=== PATIENT | male | born 1990 | race Caucasian/White ===

== ENCOUNTER 2016-05-24 17:10 | Emergency (ER) | payer BC, OTHER ==
[~2016-05-24] VITALS: Ht 177.8 cm; Wt 81.6 kg
--- NOTE | 2016-05-24 18:42 | ED GU-Male ---
General Chief Complaint: -Male Stated Complaint: SCREENED FOR CHLAMYDIA Nursing Triage Note: AMB TO ROOM WAS TOLD THAT HIS GIRLFRIEND MAY HAVE CHLAMYDIA. HAD SEX LAST NIGHT. HAVING NO SYMPTOMS AT THIS TIME. Source: patient Exam Limitations: no limitations History of Present Illness Time seen by provider: 18:42 Initial Comments 26-year-old male patient presents to the emergency Department with reports of needing checked for chlamydia. Patient was told by someone yesterday that his girlfriend may have chlamydia. Reports having intercourse with her last night. Denies using protection. Denies discharge, burning with urination, frequency , testicular pain, fever, abdominal pain, nausea, vomiting, diarrhea. Timing/Duration: other (patient was told by someone yesterday and his girlfriend may have chlamydia.) Severity/Quality: other (denies symptoms.) Activities at Onset: none Prior Genitourinary Problems: similar symptoms (patient was treated several months ago for Chlamydia due to the same girlfriend having a chlamydia infection. States he was treated prophylactically.) Sexual [place] History: less than 2 months ago, multiple partners Allergies and Home Medications Allergies Coded Allergies: No Known Drug Allergies (Unverified , 05/24/16) Home Medications No Active Prescriptions or Reported Meds Constitutional: No diaphoresis, No fever, No malaise Respiratory: no symptoms reported Cardiovascular: no symptoms reported Gastrointestinal: No abdominal pain, No diarrhea, No nausea, No vomiting Genitourinary: see HPIdenies burning, denies discharge, denies dysuria, denies frequency, denies flank pain, denies hematuria, denies pain Musculoskeletal: no symptoms reported Skin: no symptoms reported All Other Systemes Reviewed Negative Unless Noted: Yes (Negative excepted noted.) Past Opjxgwj-Vpryhf-Rmtipa Hx Patient Social History Alcohol Use: Occasionally Uses Recreational Drug Use: No Smoking Status: Current Everyday Smoker Recent Foreign Travel: No Contact w/Someone Who Travel: No Recent Infectious Disease Expo: No Respiratory Hx Respiratory Disorders: No Cardiovascular Hx Cardiac Disorders: No Neurological Hx Neurological Disorders: No Genitourinary Hx Genitourinary Disorders: No (patient previously treated prophylactically for Chlamydia.) Gastrointestinal Hx Gastrointestinal Disorders: No Reviewed Nursing Assessment Reviewed/Agree w Nursing PMH: Yes Family Medical History Significant Family History: No Pertinent Family Hx Physical Exam Vital Signs Vital Sign - Last 12Hours 05/24/16 05/24/16 17:32 19:27 Temp 98.0 Pulse 100 Resp 18 B/P 111/ Pulse Ox 98 O2 Delivery Room Air Capillary Refill : Less Than 3 Seconds General Appearance: WD/WN no apparent distress Cardiovascular: regular rate, rhythm no murmur Respiratory: lungs clear normal breath sounds no respiratory distress Gastrointestinal: normal bowel sounds non tender softNo distended Neurologic/Psychiatric: alert normal mood/affect oriented x 3 Skin: normal color warm/dry Progress/Results/Core Measures Results/Orders Lab Results Laboratory Tests Test 05/24/16 18:47 Range/Units My Orders Orders-BILLIE HEBERT Chlamydia Dna Urine Test (05/24/16 18:56) [place] Dna Urine Test (05/24/16 18:56) Vital Signs/I&O Vital Sign - Last 12Hours 05/24/16 05/24/16 17:32 19:27 Temp 98.0 Pulse 100 88 Resp 18 16 B/P 111/ Pulse Ox 98 100 O2 Delivery Room Air Departure Communication Progress Notes Patient seen and evaluated. Patient instructed to contact the emergency department approximately 7-8 days for final results of testing. Impression Impression: Primary Impression: Encounter for screening examination for sexually transmitted disease Disposition: HOME, SELF-CARE Condition: Improved Departure-Patient Inst. Decision time for Depature: 19:05 Referrals: NO,LOCAL PHYSICIAN (PCP/Family) Primary Care Physician Patient Instructions: Sexually-Transmitted Diseases (DC) Add. Discharge Instructions: All discharge instructions reviewed with patient and/or family. Voiced understanding. Follow-up with your family practitioner of choice to establish care. Abstain from intercourse until results obtained from the STD testing today. Return to the emergency department for worsened symptoms or any other concerns. Scripts No Active Prescriptions or Reported Meds Work/School Note: Local Medical Staff Listing BILLIE HEBERT May 24, 2016 18:42
[2016-05-24 19:27] VITALS: BP 110/82
== END 2016-05-24 19:26 | disposition home or self-care (01) ==
LOC: EDUNIT# 17:10 → ER 17:13
DX: Z20.2 Contact with and (suspected) exposure to infections with a predominantly sexual mode of transmission (principal); F17.210 Nicotine dependence, cigarettes, uncomplicated
CPT/HCPCS: 36415; 87491; 87591; 99281

== ENCOUNTER 2017-07-05 18:59 | Emergency (ER) | payer BC ==
[~2017-07-05] VITALS: Ht 177.8 cm; Wt 86.2 kg
[2017-07-05 20:20] LABS: BILIRUBIN,URINE NEGATIVE (NEGATIVE); CLARITY,URINE CLEAR; COLOR,URINE YELLOW; GLUCOSE, URINE (UA) NEGATIVE (NEGATIVE); KETONES,URINE NEGATIVE (NEGATIVE); LEUKOCYTE ESTERASE ,URINE NEGATIVE (NEGATIVE); NITRITE,URINE NEGATIVE (NEGATIVE); PH,URINE 6 (5-9); PROTEIN,URINE NEGATIVE (NEGATIVE); UROBILINOGEN,URINE NORMAL (NORMAL)
[2017-07-05 20:27] LABS: SQUAMOUS EPITHELIAL CELL,UR RARE /HPF
[2017-07-05 20:32] LABS: AMPHETAMINE SCREEN, URINE NEGATIVE (NEGATIVE); BARBITURATE SCREEN URINE NEGATIVE (NEGATIVE); BENZODIAZEPINES SCREEN URINE NEGATIVE (NEGATIVE); CANNABINOID SCREEN, URINE POSITIVE (NEGATIVE); COCAINE SCREEN URINE NEGATIVE (NEGATIVE); METHADONE STAT NEGATIVE (NEGATIVE); METHAMPHETAMINE SCREEN URINE S NEGATIVE (NEGATIVE); OPIATE SCREEN URINE NEGATIVE (NEGATIVE); OXYCODONE STAT NEGATIVE (NEGATIVE); PROPOXYPHENE STAT NEGATIVE (NEGATIVE); TRICYCLIC ANTIDEPRESSANTS SCRE NEGATIVE (NEGATIVE)
[2017-07-05 20:38] LABS: BASOPHILS % (AUTO) 0 % (0-10); EOSINOPHILS # (AUTO) 0.2 10^3/uL (0.0-0.3); EOSINOPHILS % (AUTO) 2 % (0-10); HEMATOCRIT 47 % (40-54); HEMOGLOBIN 16.2 G/DL (13.3-17.7); LYMPHOCYTES # (AUTO) 1.5 X 10^3 (1.0-4.0); LYMPHOCYTES % (AUTO) 18 % (12-44); MEAN CORPUSCULAR HEMOGLOBIN 31 PG (25-34); MEAN CORPUSCULAR HGB CONC 35 G/DL (32-36); MEAN CORPUSCULAR VOLUME 89 FL (80-99); MEAN PLATELET VOLUME 8.9 FL (7.4-10.4); MONOCYTES # (AUTO) 0.7 X 10^3 (0.0-1.0); MONOCYTES % (AUTO) 8 % (0-12); NEUTROPHILS # (AUTO) 5.8 X 10^3 (1.8-7.8); NEUTROPHILS % (AUTO) 71 % (42-75); PLATELET COUNT 389 10^3/uL (130-400); RED BLOOD COUNT 5.26 10^6/uL (4.35-5.85); RED CELL DISTRIBUTION WIDTH 12.3 % (10.0-14.5); WHITE BLOOD COUNT 8.2 10^3/uL (4.3-11.0)
[2017-07-05 21:05] LABS: ALANINE AMINOTRANSFERASE 18 U/L (0-55); ALKALINE PHOSPHATASE 67 U/L (40-136); BILIRUBIN,TOTAL 0.9 MG/DL (0.1-1.0); BUN/CREATININE RATIO 11; CARBON DIOXIDE 24 MMOL/L (21-32); CHLORIDE 102 MMOL/L (98-107); CREATININE SERUM 0.98 MG/DL (0.60-1.30); GFR ESTIMATED > 60; GLUCOSE 88 MG/DL (70-105); MAGNESIUM 2.4 MG/DL (1.8-2.4); POTASSIUM 4.3 MMOL/L (3.6-5.0); SODIUM 138 MMOL/L (135-145); TOTAL PROTEIN 8.1 GM/DL (6.4-8.2)
--- NOTE | 2017-07-05 21:37 | ED Neurological Problem ---
General Chief Complaint: Neurological Problems Stated Complaint: HAD EPISODE WHERE HE WAS STIFF AN UNRESPONSIVE Nursing Triage Note: FATHER STATES THAT THE PATIENT WAS FOUND STANDING IN THE KITCHEN TODAY, ARMS EXTENDED OUT IN FRONT OF HIM, MUMBLING AND "NOT RESPONSIVE." THIS EPISODE LASTED 30-60 SECS AT LEAST. FATHER GOT PATIENT TO THE COUCH ONCE RESPONSIVE AND MOTHER CHECKED A BP OF 167/111. PATIENT IS ANGER AND SHAKING IN ROOM BECAUSE HE " DOESNT NEED TO BE HERE." Nursing Sepsis Screen: No Definite Risk Source: patient Exam Limitations: no limitations History of Present Illness Date Seen by Provider: July 05, 2017 Time Seen by Provider: 21:00 Initial Comments Here with report of being found standing in the kitchen grating his teeth and not moving and not responding to his father. This happened earlier and lasted about a minute or so. Patient does not remember the incident. He remembers going to the kitchen and then later sitting in the living room but does not remember the time in between. Apparently he's had one or 2 of these episodes previously but the patient doesn't know about them. Denies headaches or injuries. Aside from these incidents never had anything like this before. Admits to occasionally using marijuana and smoking. He drinks a fifth of whiskey a week but sometimes a little more. Denies nausea, vomiting, weakness, breathing problems or fevers. Patient reports he does not really want to be here but came because his father brought him here. Timing/Duration: 1-3 hours, other (gone now) Severity: moderate Associated Symptoms: denies symptoms Allergies and Home Medications Allergies Coded Allergies: No Known Drug Allergies (Unverified , 05/24/16) Home Medications No Active Prescriptions or Reported Meds Patient Home Medication List Home Medication List Reviewed: Yes Review of Systems Constitutional: see HPI; No chills, No fever Eyes: No Symptoms Reported Ears, Nose, Mouth, Throat: no symptoms reported Respiratory: no symptoms reported Cardiovascular: no symptoms reported Gastrointestinal: no symptoms reported; No nausea, No vomiting Genitourinary: no symptoms reported Musculoskeletal: no symptoms reported Psychiatric/Neurological: See HPI, Other (question of seizure activity) All Other Systems Reviewed Negative Unless Noted: Yes Past Fhusany-Vjxevj-Xwfjos Hx Past Med/Social Hx: Reviewed Nursing Past Med/Soc Hx Patient Social History Alcohol Use: Regular Use Alcohol Beverage of Choice: [place] Recreational Drug Use: Yes Drug of Choice: MARIJUANA, "WHATEVER PAIN KILLERS FRIENDS HAVE" Smoking Status: Current Everyday Smoker Type Used: Cigarettes 2nd Hand Smoke Exposure: Yes Recent Foreign Travel: No Contact w/Someone Who Travel: No Recent Infectious Disease Expo: No Recent Hopitalizations: No Physical Abuse: No Sexual Abuse: No Seasonal Allergies Seasonal Allergies: No Past Medical History Surgeries: Yes (WISDOM TEETH) Respiratory: No Cardiac: No Neurological: No Gastrointestinal: No Nursing Suicide Risk Score: 0 Family Medical History Reviewed Nursing Family Hx No Pertinent Family Hx Physical Exam Vital Signs Vital Signs - First Documented 07/05/17 19:34 Temp 98.4 Pulse 70 Resp 18 B/P (MAP) 158/85 (109) Pulse Ox 99 Capillary Refill : Less Than 3 Seconds General Appearance: WD/WN, no apparent distress HEENT: PERRL/EOMI, TMs normal, pharynx normal Neck: full range of motion, supple Respiratory: lungs clear, normal breath sounds Cardiovascular: regular rate, rhythm, no murmur Gastrointestinal: non tender, soft Back: normal inspection, no CVA tenderness, no vertebral tenderness Extremities: normal range of motion, non-tender, normal inspection Neurologic/Psychiatric: alert, oriented x 3 Crainal Nerves: normal hearing, normal speech, PERRL Coordination/Gait: normal finger to nose, normal gait Motor/Sensory: no motor deficit, no sensory deficit, no pronator drift Skin: normal color, warm/dry Progress/Results/Core Measures Lab Results Laboratory Tests Test 07/05/17 20:12 07/05/17 20:30 Range/Units Urine Color YELLOW Urine Clarity CLEAR Urine pH 6 5-9 Urine Specific [place] 1.010 L 1.016-1.022 Urine Protein NEGATIVE NEGATIVE Urine Glucose (UA) NEGATIVE NEGATIVE Urine Ketones NEGATIVE NEGATIVE Urine Nitrite NEGATIVE NEGATIVE Urine Bilirubin NEGATIVE NEGATIVE Urine Urobilinogen NORMAL NORMAL MG/DL Urine Leukocyte Esterase NEGATIVE NEGATIVE Urine RBC (Auto) NEGATIVE NEGATIVE Urine RBC NONE /HPF Urine WBC NONE /HPF Urine Squamous Epithelial Cells RARE /HPF Urine Crystals NONE /LPF Urine Bacteria NONE /HPF Urine Casts NONE /LPF Urine Mucus NEGATIVE /LPF Urine Culture Indicated NO Urine Opiates Screen NEGATIVE NEGATIVE Urine Oxycodone Screen NEGATIVE NEGATIVE Urine Methadone Screen NEGATIVE NEGATIVE Urine Propoxyphene Screen NEGATIVE NEGATIVE Urine Barbiturates Screen NEGATIVE NEGATIVE Ur Tricyclic Antidepressants Screen NEGATIVE NEGATIVE Urine Phencyclidine Screen NEGATIVE NEGATIVE Urine Amphetamines Screen NEGATIVE NEGATIVE Urine Methamphetamines Screen NEGATIVE NEGATIVE Urine Benzodiazepines Screen NEGATIVE NEGATIVE Urine Cocaine Screen NEGATIVE NEGATIVE Urine Cannabinoids Screen POSITIVE H NEGATIVE White Blood Count 8.2 4.3-11.0 10^3/uL Red Blood Count 5.26 4.35-5.85 10^6/uL Hemoglobin 16.2 13.3-17.7 G/DL Hematocrit 47 40-54 % Mean Corpuscular Volume 89 80-99 FL Mean Corpuscular Hemoglobin 31 25-34 PG Mean Corpuscular Hemoglobin Concent 35 32-36 G/DL Red Cell Distribution Width 12.3 10.0-14.5 % Platelet Count 389 130-400 10^3/uL Mean Platelet Volume 8.9 7.4-10.4 FL Neutrophils (%) (Auto) 71 42-75 % Lymphocytes (%) (Auto) 18 12-44 % Monocytes (%) (Auto) 8 0-12 % Eosinophils (%) (Auto) 2 0-10 % Basophils (%) (Auto) 0 0-10 % Neutrophils # (Auto) 5.8 1.8-7.8 X 10^3 Lymphocytes # (Auto) 1.5 1.0-4.0 X 10^3 Monocytes # (Auto) 0.7 0.0-1.0 X 10^3 Eosinophils # (Auto) 0.2 0.0-0.3 10^3/uL Basophils # (Auto) 0.0 0.0-0.1 10^3/uL Sodium Level 138 135-145 MMOL/L Potassium Level 4.3 3.6-5.0 MMOL/L Chloride Level 102 98-107 MMOL/L Carbon Dioxide Level 24 21-32 MMOL/L Anion Gap 12 5-14 MMOL/L Blood Urea Nitrogen 11 7-18 MG/DL Creatinine 0.98 0.60-1.30 MG/DL Estimat Glomerular Filtration Rate > 60 BUN/Creatinine Ratio 11 Glucose Level 88 70-105 MG/DL Calcium Level 10.0 8.5-10.1 MG/DL Magnesium Level 2.4 1.8-2.4 MG/DL Total Bilirubin 0.9 0.1-1.0 MG/DL Aspartate Amino Transf (AST/SGOT) 18 5-34 U/L Alanine Aminotransferase (ALT/SGPT) 18 0-55 U/L Alkaline Phosphatase 67 40-136 U/L Total Protein 8.1 6.4-8.2 GM/DL Albumin 5.0 H 3.2-4.5 GM/DL Thyroid Stimulating Hormone (TSH) 0.93 0.35-4.94 UIU/ML My Orders Orders - DON CRUZ MD Cbc With Automated Diff (07/05/17 20:15) Comprehensive Metabolic Panel (07/05/17 20:15) Drug Screen Stat (Urine) (07/05/17 20:15) Magnesium (07/05/17 20:15) Thyroid Stimulating Hormone (07/05/17 20:15) Ua Culture If Indicated (07/05/17 20:15) Vital Signs/I&O 07/05/17 19:34 Temp 98.4 Pulse 70 Resp 18 B/P (MAP) 158/85 (109) Pulse Ox 99 Blood Pressure Mean: 109 Progress Note : Progress Note Seen and evaluated. Patient did not want to stay but acquiesced the lab draw and IV. Labs including thyroid studies ordered. 2130: No acute findings on laboratory data. Patient does not want to do CT scan and really wants to go. We did talk at length about concerns about seizures. 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 He states that he will follow-up in the father states that he will encourage him to follow-up. Discharged home with return precautions. Patient verbalize understanding instructions and agreement with plan. Departure Impression Primary Impression: Seizure-like activity Disposition: 01 HOME, SELF-CARE Condition: Stable Departure-Patient Inst. Decision time for Depature: 21:37 Referrals: NO,LOCAL PHYSICIAN (PCP/Family) Primary Care Physician Patient Instructions: Seizures, Adult (DC) Add. Discharge Instructions: All discharge instructions reviewed with patient and/or family. Voiced understanding. Do not perform activities increase your risk or wrist others for injury including driving, climbing to heights spaces or bathing/swimming alone. Use should follow-up with your doctor or doctor of your choosing for recheck and further evaluation and further evaluation for possible seizure disorder. Return for worse pain, fever, vomiting, weakness, breathing problems, seizures or other concerns as needed. Scripts No Active Prescriptions or Reported Meds DON CRUZ MD July 05, 2017 21:37
[2017-07-05 21:41] VITALS: BP 158/85
[2017-07-06] MEDS ORDERED: AMOX500C2 PO (15:01)
== END 2017-07-05 21:43 | disposition home or self-care (01) ==
LOC: EDUNIT# 18:59 → ER 19:01
DX: R25.9 Unspecified abnormal involuntary movements (principal); F12.10 Cannabis abuse, uncomplicated; F17.210 Nicotine dependence, cigarettes, uncomplicated
CPT/HCPCS: 36415; 80053; 80306; 81000; 83735; 84443; 85025; 99283

== ENCOUNTER 2017-07-06 11:14 | Emergency (ER) | payer BC ==
[~2017-07-06] VITALS: Ht 175.3 cm; Wt 81.6 kg
--- NOTE | 2017-07-06 12:41 | ED Neurological Problem ---
General Chief Complaint: Neurological Problems Stated Complaint: SEIZURE LIKE ACTIVITY-LAST ONE LAST NIGHT Nursing Triage Note: ARRIVED VIA AMB TO ROOM 01 WITH MULTIPLE FAMILY. WAS SEEN HERE LAST EVENING AFTER A POSSIBLE SEIZURE. DR CRUZ WANTED A CT DONE BUT PT REFUSED. AFTER GOING HOME HE HAD A PERIOD OF EYES LOCKED AND SHAKING AND A STIFF BODY. Nursing Sepsis Screen: No Definite Risk Source: patient, family Exam Limitations: no limitations History of Present Illness Date Seen by Provider: July 06, 2017 Time Seen by Provider: 12:36 Initial Comments To ER by family with reports of seizure-like activity. About 2 weeks ago this first started. The patient had an episode of standing upright, arms out in front of him, gritting his teeth, eyes fixed and he was shaking. He was unresponsive to verbal stimuli by his father. Those symptoms lasted for about a minute, for a few moments afterwards he seemed a bit disoriented. He had another episode yesterday afternoon walking from one room of the house to another and father states that he again until his arms out in front of him, his eyes were fixed, he was shaking and unresponsive to verbal stimuli. The symptoms again lasted about a minute with a few moments of disorientation afterwards. The patient himself does not recall any of these episodes, he is reluctant to be here, only here at his family's request. There is no personal or family history of seizure disorder. He was evaluated here in the emergency room last night but he refused a head CT scan. He was discharged home. He's not had any additional episodes of seizure-like activity since discharge yesterday. His father has since been able to convince him to have a head CT done. Patient denies any substance abuse stating "the only pain pills I've done is a coworker gave me a hydrocodone because I bust my ass that much harder than anybody else" . Timing/Duration: episodic Severity: moderate Allergies and Home Medications Allergies Coded Allergies: No Known Drug Allergies (Unverified , 05/24/16) Home Medications No Active Prescriptions or Reported Meds Patient Home Medication List Home Medication List Reviewed: Yes Review of Systems Constitutional: see HPI Eyes: No Symptoms Reported Ears, Nose, Mouth, Throat: no symptoms reported Respiratory: no symptoms reported Cardiovascular: no symptoms reported Genitourinary: no symptoms reported Musculoskeletal: no symptoms reported Skin: no symptoms reported Psychiatric/Neurological: See HPI; Denies Cognitive Dysfunction, Denies Headache; [place] Seizures Endocrine: No Symptoms Reported Hematologic/Lymphatic: No Symptoms Reported Past Dzrgupa-Eixevh-Tzpyig Hx Patient Social History Alcohol Use: Regular Use Alcohol Beverage of Choice: Beer Recreational Drug Use: Yes Drug of Choice: POT Smoking Status: Current Everyday Smoker Type Used: Cigarettes 2nd Hand Smoke Exposure: Yes Recent Foreign Travel: No Contact w/Someone Who Travel: No Recent Infectious Disease Expo: No Recent Hopitalizations: No Seasonal Allergies Seasonal Allergies: No Past Medical History Surgeries: Yes (WISDOM TEETH) Respiratory: No Cardiac: No Neurological: No Gastrointestinal: No Family Medical History No Pertinent Family Hx Physical Exam Vital Signs Vital Signs - First Documented 07/06/17 12:00 Temp 98.8 Pulse 90 Resp 18 B/P (MAP) 142/87 (105) Pulse Ox 98 O2 Delivery Room Air Capillary Refill : Less Than 3 Seconds General Appearance: WD/WN, no apparent distress HEENT: PERRL/EOMI, normal ENT inspection Neck: non-tender, full range of motion Respiratory: no respiratory distress, no accessory muscle use Cardiovascular: regular rate, rhythm, no murmur Gastrointestinal: normal bowel sounds, non tender, soft Extremities: normal range of motion, non-tender Neurologic/Psychiatric: alert, oriented x 3, other (No focal neurologic deficit. He is unhappy about being here, only here to appease his family.) Crainal Nerves: normal hearing, normal speech, PERRL Coordination/Gait: normal finger to nose, normal gait Motor/Sensory: no motor deficit, no sensory deficit Skin: normal color, warm/dry Progress/Results/Core Measures My Orders Orders - LILIANA SORIANO APRN Ct Head Wo (07/06/17 12:23) Mri Brain W/O Contrast (07/06/17 13:49) Mra Head W/O Contrast (07/06/17 ) Vital Signs/I&O 07/06/17 12:00 Temp 98.8 Pulse 90 Resp 18 B/P (MAP) 142/87 (105) Pulse Ox 98 O2 Delivery Room Air Blood Pressure Mean: 105 Progress Note : Progress Note CT scan unremarkable. I'll proceed with MR venogram to evaluate for cerebral venous sinus thrombosis given the seizure-like activity with a left maxillary sinusitis. If This is unremarkable have him follow-up with neurology and treat with antibiotics for the sinusitis Diagonstic Imaging: CT Comments NAME: BARBARA CRUZ [facility] REC#: [id number] PT STATUS: REG ER : 1990 PHYSICIAN: LILIANA SORIANO APRN ADMIT DATE: 07/06/17/ER Draft Date of Exam:07/06/17 CT HEAD WO PROCEDURE: CT head without contrast. TECHNIQUE: Multiple contiguous axial images were obtained through the brain without the use of intravenous contrast. INDICATION: Seizure. FINDINGS: The ventricles are normal in size, shape, and position. There are no masses or hemorrhages. There are no extra-axial fluid collections. There is some membrane thickening in the left maxillary sinus. IMPRESSION: Left maxillary sinusitis. No acute intracranial abnormalities are seen. Dictated on workstation # [id number] Dict: 07/06/17 1333 Trans: 07/06/17 1336 [id number] Interpreted by: DON PAZ MD Electronically signed by: NAME: BARBARA CRUZ [facility] REC#: [id number] PT STATUS: REG ER : 1990 PHYSICIAN: LILIANA SORIANO APRN ADMIT DATE: 07/06/17/ER Draft Date of Exam:07/06/17 MRI BRAIN W/O CONTRAST PROCEDURE: MR imaging of the brain without contrast. TECHNIQUE: Multiplanar, multisequence MR imaging of the brain was performed without contrast. INDICATION: Seizure-like activity. The ventricles and sulci are within normal limits. The normal expected flow-voids within the carotid siphons are seen. No diffusion restriction is identified to suggest acute ischemia. No acute intra-axial or extra-axial hemorrhage is seen. Corpus callosum is unremarkable. The sella and parasellar structures are unremarkable. IMPRESSION: Unremarkable noncontrast MRI of the brain. Dictated on workstation # [id number] Dict: 07/06/17 1444 Trans: 07/06/17 1454 [facility] [id number] Interpreted by: CABRERA HOLCOMB MD Electronically signed by: NAME: BARBARA CRUZ [facility] REC#: [id number] PT STATUS: REG ER : 1990 PHYSICIAN: LILIANA SORIANO APRN ADMIT DATE: 07/06/17/ER Draft Date of Exam:07/06/17 MRA HEAD W/O CONTRAST CLINICAL INDICATION: Patient came to ER with seizure-like activity. Evaluate for dural venous sinus thrombosis. EXAM: MRV of the head performed without IV contrast using 3-D imaging. 3-D rotating MIP images of the head were created to better evaluate anatomy. COMPARISON: Head CT without contrast dated 07/06/2017. MRI of the brain performed without IV contrast dated 07/06/2017. FINDINGS: The dural venous sinuses are patent with no evidence of definitive intravascular thrombus. There are flow void seen within the distal sigmoid sinuses and jugular veins bilaterally. The deep venous structures are patent. The truncated flow void appearance in the anterior aspect of the dural venous sinus is suspected to be congenital. IMPRESSION: There is no evidence of dural venous sinus thrombosis. Dictated on workstation # [id number] Dict: 07/06/17 1434 Trans: 07/06/17 1456 [facility] [id number] Interpreted by: DHAVAL ALEXANDRA MD Electronically signed by: Departure Impression Primary Impression: Seizure-like activity Disposition: HOME, SELF-CARE Condition: Stable Departure-Patient Inst. Decision time for Depature: 13:39 Referrals: [facility] [place] (PCP/Family) Primary Care Physician Patient Instructions: NO INSTRUCTIONS GIVEN Add. Discharge Instructions: 1. Your CT scan only shows left maxillary sinusitis, no evidence of a rui tumor. However, this does not exclude seizure disorder. You should follow up with Neurology for further evaluation. Unfortunately we do not have a neurologist here in [place]. Call [facility] to make an appointment at [phone] All discharge instructions reviewed with patient and/or family. Voiced understanding. Scripts Amoxicillin (Amoxicillin) 500 Mg Capsule 1000 MG PO TID, #42 CAP Prov: LILIANA SORIANO APRN 07/06/17 LLIIANA SORIANO APRN July 06, 2017 12:41
--- NOTE | 2017-07-06 13:37 | Diagnostic Imaging Report ---
PROCEDURE: CT head without contrast. TECHNIQUE: Multiple contiguous axial images were obtained through the brain without the use of intravenous contrast. INDICATION: Seizure. FINDINGS: The ventricles are normal in size, shape, and position. There are no masses or hemorrhages. There are no extra-axial fluid collections. There is some membrane thickening in the left maxillary sinus. IMPRESSION: Left maxillary sinusitis. No acute intracranial abnormalities are seen. Dictated by: Dictated on workstation # [id number]
--- NOTE | 2017-07-06 14:55 | Diagnostic Imaging Report ---
PROCEDURE: MR imaging of the brain without contrast. TECHNIQUE: Multiplanar, multisequence MR imaging of the brain was performed without contrast. INDICATION: Seizure-like activity. The ventricles and sulci are within normal limits. The normal expected flow-voids within the carotid siphons are seen. No diffusion restriction is identified to suggest acute ischemia. No acute intra-axial or extra-axial hemorrhage is seen. Corpus callosum is unremarkable. The sella and parasellar structures are unremarkable. IMPRESSION: Unremarkable noncontrast MRI of the brain. Dictated by: Dictated on workstation # [id number]
--- NOTE | 2017-07-06 14:57 | Diagnostic Imaging Report ---
CLINICAL INDICATION: Patient came to ER with seizure-like activity. Evaluate for dural venous sinus thrombosis. EXAM: MRV of the head performed without IV contrast using 3-D imaging. 3-D rotating MIP images of the head were created to better evaluate anatomy. COMPARISON: Head CT without contrast dated 07/06/2017. MRI of the brain performed without IV contrast dated 07/06/2017. FINDINGS: The dural venous sinuses are patent with no evidence of definitive intravascular thrombus. There are flow void seen within the distal sigmoid sinuses and jugular veins bilaterally. The deep venous structures are patent. The truncated flow void appearance in the anterior aspect of the dural venous sinus is suspected to be congenital. IMPRESSION: There is no evidence of dural venous sinus thrombosis. Dictated by: Dictated on workstation # [id number]
[2017-07-06] MEDS ORDERED: AMOX500C2 PO (15:01)
[2017-07-06 15:05] VITALS: BP 117/61
== END 2017-07-06 15:05 | disposition home or self-care (01) ==
LOC: EDUNIT# 11:14 → ER 11:16
DX: R25.8 Other abnormal involuntary movements (principal); F12.10 Cannabis abuse, uncomplicated; F17.210 Nicotine dependence, cigarettes, uncomplicated
CPT/HCPCS: 70450; 70544; 70551

== ENCOUNTER 2020-05-29 00:41 | Emergency (ER) | payer SELFPAY ==
[~2020-05-29] VITALS: Ht 182.8 cm; Wt 95.2 kg
[~2020-05-29 00:41] MED LIST: AMOX500C2 PO
[2020-05-29] MEDS ORDERED: LACTATED RINGERS 1,000 ML IV ONE ×2 (01:00→03:42)
--- NOTE | 2020-05-29 01:09 | ED GI ---
General Chief Complaint: Abdominal/GI Problems Stated Complaint: BLOOD IN STOOL Source of Information: Patient (DIFFICULT HISTORIAN--TALKS NON-STOP AT LENGTH, DIFFICULT TO KEEP ON SUBJECT, SOMEWHAT HOSTILE THROUGHOUT ER STAY.) History of Present Illness Date Seen by Provider: May 29, 2020 Time Seen by Provider: 00:55 Initial Comments PT ARRIVES VIA POV STATES "MY STEP MOM FORCED ME TO COME HERE--I DON'T WANT TO BE HERE" C/O "BLOOD IN STOOLS" FOR THE LAST 2 DAYS HAS HAD 2 STOOLS TODAY C/O PAIN IN RECTUM WITH BM'S NO BLEEDING WITHOUT STOOL OCCASIONAL MILD ABDOMINAL CRAMPING NO NAUSEA/VOMITING DENIES CONSTIPATION OR DIARRHEA NO RASHES OR EXCESSIVE BRUISING OR BLEEDING FROM ANYWHERE ELSE. PT STATES HE HAS NOT EATEN IN 3-4 DAYS "BECAUSE OF MY ANXIETY AND DEPRESSION AND THINGS I'M DEALIN' WITH WITH MY GIRLFRIEND AND MY FAMILY" STATES HE HAS BEEN DRINKING WATER AND SOME POP WHILE HE IS AT WORK STATES "AND I'VE BEEN DRINKING ALCOHOL ALOT MORE EXCESSIVELY THAN I DO NORMALLY" STATES "I USED TO DRINK ALOT ALOT ALOT" ( CANNOT STATE HOW MUCH) , THEN STATES HE STOPPED DRINKING FOR A YEAR, THEN STARTED DRINKING HEAVILY 1 1/2 WEEKS AGO "BECAUSE OF ALL THE STUFF I'M DEALIN' WITH-AND I CHOSE TO HANDLE IT THIS WAY" STATES HE HAS BEEN DRINKING A LARGE BOTTLE ( UNKNOWN SIZE--? 750 ML ? ) OF [place]OUR[place] WHISKEY EVERY DAY, AND HAS HAD AT LEAST THAT MUCH TONIGHT. PT STATES "I'M AN ANGRY PERSON ALL THE TIME ANYWAY" AND STATES HE HIS NOT HAPPY ABOUT COMING TO ER--STATES HIS STEP MOM "FORCED HIM TO COME HERE" TONIGHT FOR THE BLOOD IN HIS STOOLS PT LIVES WITH HIS GIRLFRIEND--PT STATES HE HAS A STEP SON AND A CHILD WELL. STATES HE WENT TO [facility] THIS WEEK AND WAS STARTED ON FLUOXETINE AND TRAZADONE FOR HIS ANXIETY AND PROBLEMS SLEEPING PCP: [facility] Allergies and Home Medications Allergies Coded Allergies: No Known Drug Allergies (Unverified , 05/24/16) Home Medications Amoxicillin 500 Mg Capsule, 1,000 MG PO TID Prescribed by: LILIANA SORIANO on 07/06/17 1501 Patient Home Medication List Home Medication List Reviewed: Yes Review of Systems Review of Systems Constitutional: no symptoms reported Respiratory: No Symptoms Reported Cardiovascular: No Symptoms Reported Gastrointestinal: See HPI Genitourinary: No Symptoms Reported Musculoskeletal: no symptoms reported Skin: no symptoms reported Psychiatric/Neurological: See HPI Endocrine: No Symptoms Reported Hematologic/Lymphatic: No Symptoms Reported Past Ktqydzn-Iwmacj-Eionuh Hx Past Med/Social Hx: Reviewed and Corrections made Patient Social History Alcohol Use: Regular Use Alcohol Beverage of Choice: Beer Drug of Choice: THC Smoking Status: Current Everyday Smoker Type Used: Cigarettes 2nd Hand Smoke Exposure: Yes Recent Hopitalizations: No Substance type: Marijuana Seasonal Allergies Seasonal Allergies: No Past Medical History Surgeries: Yes (WISDOM TEETH) Respiratory: No Cardiac: No Neurological: No Gastrointestinal: No Musculoskeletal: No Endocrine: No HEENT: Yes (WISDOM TEETH REMOVED) Psychosocial: Yes (ANGER ISSUES) Sleep Difficulties, Anxiety, Depression Family Medical History No Pertinent Family Hx SOCIAL HISTORY: -ETOH-=-HEAVY/DAILY USE--DRINKS LARGE BOTTLE OF [place] WHISKEY A DAY--MUCH MORE AT TIMES -DRUGS--+ THC USE -SMOKES 1 PPD Physical Exam Vital Signs Capillary Refill : Height/Weight/BMI Height: 5'9.00" Weight: 180lbs. 0oz. 81.299293vd; BMI Method:Stated General Appearance: WD/WN, no apparent distress, other (SOMEWHAT HOSTILE, TALKS NON-STOP AT GREAT LENGTH, DIFFICULT TO KEEP ON SUBJECT. ) HEENT: PERRL/EOMI Respiratory: normal breath sounds, no respiratory distress, no accessory muscle use Cardiovascular: regular rate, rhythm, no murmur Gastrointestinal: normal bowel sounds, non tender, soft, no organomegaly, no pulsatile mass Rectal: normal rectal tone; No hemorrhoids; tenderness, other (SCANT AMOUNT OF DRIED BLOOD EXTERNALLY. PT WITH SMALL FISSURE AT 6:00--TENDER TO PALPATION. NO ACTIVE BLEEDING. NO HEMORRHOIDS, NO MASSES. 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, no motor/sensory deficits, alert, oriented x 3 Skin: normal color, warm/dry Progress/Results/Core Measures Results/Orders Lab Results Laboratory Tests Test 05/29/20 01:04 Range/Units White Blood Count 7.3 4.3-11.0 10^3/uL Red Blood Count 5.08 4.30-5.52 10^6/uL Hemoglobin 15.2 13.3-17.7 g/dL Hematocrit 44 40-54 % Mean Corpuscular Volume 86 80-99 fL Mean Corpuscular Hemoglobin 30 25-34 pg Mean Corpuscular Hemoglobin Concent 35 32-36 g/dL Red Cell Distribution Width 11.7 10.0-14.5 % Platelet Count 369 130-400 10^3/uL Mean Platelet Volume 8.8 L 9.0-12.2 fL Immature Granulocyte % (Auto) 0 % Neutrophils (%) (Auto) 48 42-75 % Lymphocytes (%) (Auto) 41 12-44 % Monocytes (%) (Auto) 9 0-12 % Eosinophils (%) (Auto) 2 0-10 % Basophils (%) (Auto) 1 0-10 % Neutrophils # (Auto) 3.5 1.8-7.8 10^3/uL Lymphocytes # (Auto) 3.0 1.0-4.0 10^3/uL Monocytes # (Auto) 0.7 0.0-1.0 10^3/uL Eosinophils # (Auto) 0.1 0.0-0.3 10^3/uL Basophils # (Auto) 0.0 0.0-0.1 10^3/uL Immature Granulocyte # (Auto) 0.0 0.0-0.1 10^3/uL Prothrombin Time 14.0 12.2-14.7 SEC INR Comment 1.0 0.8-1.4 Activated Partial Thromboplast Time 32 24-35 SEC Sodium Level 140 135-145 MMOL/L Potassium Level 3.6 3.6-5.0 MMOL/L Chloride Level 106 98-107 MMOL/L Carbon Dioxide Level 19 L 21-32 MMOL/L Anion Gap 15 H 5-14 MMOL/L Blood Urea Nitrogen 7 7-18 MG/DL Creatinine 1.02 0.60-1.30 MG/DL Estimat Glomerular Filtration Rate > 60 BUN/Creatinine Ratio 7 Glucose Level 93 70-105 MG/DL Calcium Level 9.0 8.5-10.1 MG/DL Corrected Calcium 8.5-10.1 MG/DL Magnesium Level 2.4 1.6-2.4 MG/DL Total Bilirubin 0.5 0.1-1.0 MG/DL Aspartate Amino Transf (AST/SGOT) 21 5-34 U/L Alanine Aminotransferase (ALT/SGPT) 20 0-55 U/L Alkaline Phosphatase 78 40-136 U/L Total Protein 7.5 6.4-8.2 GM/DL Albumin 4.6 H 3.2-4.5 GM/DL Amylase Level 46 25-125 U/L Lipase 28 8-78 U/L Serum Alcohol 84 H <10 MG/DL My Orders Orders - SARA GAMBINO DO Ed Iv/Invasive Line Start (05/29/20 01:00) Ct Abdomen/Pelvis W (05/29/20:00) Acute Abd Series (05/29/20:00) Alcohol (05/29/20:00) Amylase (05/29/20:00) Cbc With Automated Diff (05/29/2000) Comprehensive Metabolic Panel (05/29/20) Drug Screen Stat (Urine) (05/29/20:00) Lipase (05/29/20:00) Magnesium (05/29/20:00) Protime With Inr (05/29/20:00) Partial Thromboplastin Time (05/29/20:00) Ua Culture If Indicated (05/29/2000) Ed Iv/Invasive Line Start (05/29/20:00) Lactated Ringers (Lr 1000 Ml Iv Solution (05/29/20:00) Medications Given in ED Current Medications Medications Dose Ordered Sig/Gladys Route Start Time Stop Time Status Last Admin Dose Admin Lactated Ringer's 1,000 ml @ 0 mls/hr Q0M ONCE IV 05/29/20 01:00 05/29/20 01:02 DC 05/29/20 01:11 1,000 MLS/HR Progress Progress Note : Progress Note PT REFUSES TO ATTEMPT TO GIVE URINE SPECIMEN 0145--PT WITH INCREASING AGITATION AND STATES HE ISN'T GOING TO STAY ANY LONGER AND REFUSES ALL TESTS--NO LAB BACK AND REFUSES TO HAVE CT DONE. STATES HE "JUST WANTS TO GET THE FUCK OUT OF HERE". AMA PAPERS SIGNED, PT ADVISED OF RISKS Departure Impression Primary Impression: Left against medical advice Disposition: 07 AGAINST MEDICAL ADVICE Condition: Against Medical Advice Departure-Patient Inst. Referrals: NO,LOCAL PHYSICIAN (PCP/Family) Primary Care Physician SARA GAMBINO DO May 29, 2020 01:09
[2020-05-29 01:13] LABS: BASOPHILS % (AUTO) 1 % (0-10); EOSINOPHILS # (AUTO) 0.1 10^3/uL (0.0-0.3); EOSINOPHILS % (AUTO) 2 % (0-10); HEMATOCRIT 44 % (40-54); HEMOGLOBIN 15.2 g/dL (13.3-17.7); LYMPHOCYTES % (AUTO) 41 % (12-44); MEAN CORPUSCULAR HEMOGLOBIN 30 pg (25-34); MEAN CORPUSCULAR HGB CONC 35 g/dL (32-36); MEAN CORPUSCULAR VOLUME 86 fL (80-99); MEAN PLATELET VOLUME 8.8 fL (9.0-12.2); MONOCYTES # (AUTO) 0.7 10^3/uL (0.0-1.0); MONOCYTES % (AUTO) 9 % (0-12); NEUTROPHILS # (AUTO) 3.5 10^3/uL (1.8-7.8); NEUTROPHILS % (AUTO) 48 % (42-75); PLATELET COUNT 369 10^3/uL (130-400); WHITE BLOOD COUNT 7.3 10^3/uL (4.3-11.0)
[2020-05-29 01:46] VITALS: BP 134/92
[2020-05-29 01:59] LABS: ALANINE AMINOTRANSFERASE 20 U/L (0-55); ALBUMIN 4.6 GM/DL (3.2-4.5); ALKALINE PHOSPHATASE 78 U/L (40-136); AMYLASE 46 U/L (25-125); BILIRUBIN,TOTAL 0.5 MG/DL (0.1-1.0); BUN/CREATININE RATIO 7; CARBON DIOXIDE 19 MMOL/L (21-32); CHLORIDE 106 MMOL/L (98-107); CREATININE SERUM 1.02 MG/DL (0.60-1.30); GFR ESTIMATED > 60; GLUCOSE 93 MG/DL (70-105); LIPASE 28 U/L (8-78); MAGNESIUM 2.4 MG/DL (1.6-2.4); POTASSIUM 3.6 MMOL/L (3.6-5.0); SODIUM 140 MMOL/L (135-145); TOTAL PROTEIN 7.5 GM/DL (6.4-8.2)
== END 2020-05-29 01:46 | disposition left against medical advice (07) ==
LOC: EDUNIT# 00:41 → ER 00:50
DX: K92.1 Melena (principal); F17.210 Nicotine dependence, cigarettes, uncomplicated
CPT/HCPCS: 80053; 82150; 83690; 83735; 85025; 85610; 85730; 99284; G0480; 36415; 80320

== ENCOUNTER 2022-11-08 12:56 | Emergency (ER) | payer SELFPAY ==
[~2022-11-08] VITALS: Ht 182.8 cm; Wt 113.3 kg
[2022-11-08] MEDS ORDERED: CYCL10TA25 PO (13:26)
[2022-11-08] MEDS ORDERED: NAPR-915 PO (13:26)
[2022-11-08] MEDS ORDERED: NF-METHYLP PO (13:26)
--- NOTE | 2022-11-08 13:27 | ED Back Pain ---
General Chief Complaint: Back Problems Stated Complaint: BACK PAIN Nursing Triage Note: PT AMB TO [facility] WITH CC OF LOWER BACK PAIN AND SPASMS SINCE LAST WEEK. PT STATES THAT THE PAIN STARTED AFTER HE TRIED TO GET A CAR OUT OF THE DITCH. PT HAS TAKEN TYLENOL FOR PAIN. Source of Information: Patient Exam Limitations: No Limitations History of Present Illness Date Seen by Provider: Nov 08, 2022 Time Seen by Provider: 13:21 Initial Comments Patient is a 32-year-old male who presents to the ED for low back pain. This started 1 week ago. States he was helping someone pull a vehicle out of the ditch. Started having pain the next day described as tightness to his lower back. This appears to be worse with lying, standing or movement.*Developing a sharp shooting pain with certain movements down to the right knee. Described as numbness and tingling. Denies any falls or trauma. No bowel or urine incontinence or saddle paresthesia. Denies of any lower extremity weakness. Patient denies of any chest pain, cough, shortness of breath, fever, chills. States he has been taking Tylenol without much improvement. Works at [employer] and states he is having difficulty working secondary to the pain. Denies history of previous injuries. Allergies and Home Medications Allergies Coded Allergies: No Known Drug Allergies (Unverified , 05/24/16) Patient Home Medication List Home Medication List Reviewed: Yes Amoxicillin (Amoxicillin) 500 Mg Capsule, 1,000 MG PO TID Prescribed by: LILIANA SORIANO on 07/06/17 1501 Cyclobenzaprine HCl (Cyclobenzaprine HCl) 10 Mg Tablet, 10 MG PO TID Prescribed by: FAN HU on 11/08/22 1326 Methylprednisolone (Medrol Dose pack) 4 Mg Tab, 4 MG PO UD Prescribed by: FAN HU on 11/08/22 1326 Naproxen (Naproxen) 500 Mg Tablet, 500 MG PO Q12H Prescribed by: FAN HU on 11/08/22 1326 Review of Systems Constitutional: No chills, No diaphoresis, No malaise, No weakness EENTM: No hearing loss, No ear pain Respiratory: No cough, No dyspnea on exertion, No phlegm, No short of breath, No stridor, No wheezing Gastrointestinal: No abdominal pain, No diarrhea, No nausea, No vomiting Genitourinary: No decreased output, No discharge Musculoskeletal: back pain; No joint pain; muscle pain, muscle stiffness Skin: No change in color, No change in hair/nails All Other Systems Reviewed Negative Unless Noted: Yes Past Jstoytx-Syrowh-Gjegul Hx Patient Social History Tobacco Use?: Yes Tobacco type used: Cigarettes Substance use?: No Alcohol Use?: Yes Seasonal Allergies Seasonal Allergies: No Past Medical History Surgeries: Yes (WISDOM TEETH) Respiratory: No Cardiac: No Neurological: No Genitourinary: No Gastrointestinal: No Musculoskeletal: No Endocrine: No HEENT: Yes (WISDOM TEETH REMOVED) Cancer: No Psychosocial: Yes (ANGER ISSUES) Sleep Difficulties, Anxiety, Depression Integumentary: No Blood Disorders: No Family Medical History No Pertinent Family Hx SOCIAL HISTORY: -ETOH-=-HEAVY/DAILY USE--DRINKS LARGE BOTTLE OF [place]ISKEY A DAY--MUCH MORE AT TIMES -DRUGS--+ THC USE -SMOKES 1 PPD Physical Exam Vital Signs Vital Signs - First Documented 11/08/22 13:10 Pulse 59 B/P (MAP) 155/102 (119) Pulse Ox 97 O2 Delivery Room Air Capillary Refill : Height, Weight, BMI Height: 5'9.00" Weight: 180lbs. 0oz. 81.699124gd; 33.00 BMI Method:Stated General Appearance: No Apparent Distress, WD/WN HEENT: PERRL/EOMI, TMs Normal, Normal ENT Inspection, Pharynx Normal Neck: Full Range of Motion, Normal Inspection, Non Tender, Supple Cardiovascular: Regular Rate, Rhythm, No Edema, No Gallop, No JVD Respiratory: Chest Non Tender, Lungs Clear, Normal Breath Sounds, No Accessory Muscle Use, No Respiratory Distress Gastrointestinal: Normal Bowel Sounds, No Organomegaly, No Pulsatile Mass Back: Other (Bilateral lumbar paraspinal muscle tenderness. Right lateral lumbar midline tenderness. Pain with flexion. Normal active range of motion. No swelling or bruising. Positive straight leg raise right leg) Extremity: Normal Capillary Refill, Normal Inspection, Normal Range of Motion Neurologic/Psychiatric: Alert, Oriented x3, No Motor/Sensory Deficits, Normal Mood/Affect, cvicu rn II-XII Norm as Tested Skin: Normal Color Progress/Results/Core Measures Results/Orders My Orders Orders - RENATE LIN Ketorolac Injection (Ketorolac Injection (11/08/22 13:30) Orphenadrine Inj (Ed Only) (Orphenadrine (11/08/22 13:30) Methylprednisolone Sod Succ (Methylpredn (11/08/22 13:30) Medications Given in ED Current Medications Medications Dose Ordered Sig/Gladys Route Start Time Stop Time Status Last Admin Dose Admin Ketorolac Tromethamine 30 mg ONCE ONCE IM 11/08/22 13:30 11/08/22 13:31 DC 11/08/22 13:37 30 MG Methylprednisolone Sodium Succinate 125 mg ONCE ONCE IM 11/08/22 13:30 11/08/22 13:31 DC 11/08/22 13:37 125 MG Orphenadrine Citrate 60 mg ONCE ONCE IM 11/08/22 13:30 11/08/22 13:31 DC 11/08/22 13:37 60 MG Vital Signs/I&O 11/08/22 11/08/22 13:10 14:02 Pulse 59 B/P (MAP) 155/102 (119) 146/88 Pulse Ox 97 O2 Delivery Room Air Blood Pressure Mean: 119 Departure Communication (PCP) Patient with lower abdominal back discomfort. Differential diagnosis muscle strain, bulging disc, radiculopathy. sharp shooting pain to right knee with certain movements. Denies of any fall. Patient was lifting a car out of a ditch the day prior the pain started. Patient denies of any abdominal pain, nausea, vomiting, diarrhea, shortness of breath, cough. Patient with bilateral lower lumbar paraspinal muscle tenderness. Tenderness to right sided lumbar. Pain with movement. Positive straight leg raise. No falls suggesting potential fracture. Patient without any neurological red flag findings such as bowel or urine incontinence or saddle paresthesia. Afebrile. Denies drug use. Has been taken Tylenol without much improvement. Patient received Toradol Norflex and Solu-Medrol IM. This appears to be more musculoskeletal. Other etiologies would be potential bulging disc with the numbness and tingling to the right leg. No neurological red flag findings needing emergent imaging. Will discharge with anti-inflammatories, Medrol Dosepak muscle relaxer. Recommend rest, stretching and ice. Follow-up your PCP in 2 to 3 days for reevaluation. Would likely benefit with physical therapy. If any worsening symptoms to return back to ED Impression Primary Impression: Low back pain Disposition: 01 HOME, SELF-CARE Condition: Stable Departure-Patient Inst. Decision time for Depature: 13:25 Referrals: NO,LOCAL PHYSICIAN (PCP/Family) Primary Care Physician Patient Instructions: Low Back Pain ED Add. Discharge Instructions: Recommend rest, stretching, heat. Take your pain medication as prescribed. Follow-up with your primary care physician for further evaluation. If any worsening symptoms such as bowel or urine incontinence, lower extremity weakness or pain in the groin to return back to ED. All discharge instructions reviewed with patient and/or family. Voiced understanding. Scripts Cyclobenzaprine HCl (Cyclobenzaprine HCl) 10 Mg Tablet 10 MG PO TID, #14 TAB Prov: RENATE LIN 11/08/22 Naproxen (Naproxen) 500 Mg Tablet 500 MG PO Q12H, #20 TAB Prov: RENATE LIN 11/08/22 Methylprednisolone (Medrol Dose pack) 4 Mg Tab 4 MG PO UD for 6 Days, #21 TAB as directed per dose pack Prov: RENATE LIN 11/08/22 Work/School Note: Work Release Form Date Seen in the Emergency Department: Nov 08, 2022 Return to Work: Nov 10, 2022 RENATE LIN Nov 08, 2022 13:27
[2022-11-08] MEDS ORDERED: ORPHENADRINE 60 MG/2 ML AMP (ED ONLY) IM ONE (13:30)
[2022-11-08] MEDS ORDERED: KETOROLAC INJ 30 MG/ML VIAL IM ONE (13:30)
[2022-11-08] MEDS ORDERED: methylPREDNISolone INJ 125 MG VIAL IM ONE (13:30)
[2022-11-08 14:02] VITALS: BP 146/88
== END 2022-11-08 14:01 | disposition home or self-care (01) ==
LOC: ER 12:56 → EDUNIT# 12:56 → ER 14:01
DX: M54.50 Low back pain, unspecified (principal); F17.210 Nicotine dependence, cigarettes, uncomplicated
CPT/HCPCS: 99284